=== PATIENT | male | born 1960 | race Asian ===

== ENCOUNTER 2018-10-31 02:55 | Emergency (ER) | payer MEDICAID ==
[~2018-10-31] VITALS: Ht 175.3 cm; Wt 74.5 kg
[2018-10-31 03:04] VITALS: BP 179/93
[2018-10-31] MEDS ORDERED: ketorolac trometh. 30mg/ml inj. IM ONE (03:20)
[2018-10-31] MEDS ORDERED: IBUP-1985 PO (03:21)
== END 2018-10-31 06:18 | disposition home or self-care (01) ==
LOC: ER 02:56
DX: M25.561 Pain in right knee (principal); M25.461 Effusion, right knee; Z79.899 Other long term (current) drug therapy; W18.49XA Other slipping, tripping and stumbling without falling, initial encounter; Y93.89 Activity, other specified; Y92.89 Other specified places as the place of occurrence of the external cause; Y99.8 Other external cause status
CPT/HCPCS: 73564; 73700; 96372; 99284; J1885

== ENCOUNTER 2020-02-11 16:47 | Emergency (ER) | payer MEDICAID ==
[~2020-02-11] VITALS: Ht 175.3 cm; Wt 83.6 kg
[~2020-02-11 16:47] MED LIST: IBUP-1985 PO
[2020-02-11 17:07] VITALS: BP 156/83
== END 2020-02-11 18:18 | disposition home or self-care (01) ==
LOC: ER 16:47
DX: M25.562 Pain in left knee (principal); M25.462 Effusion, left knee; Z60.2 Problems related to living alone; Z79.899 Other long term (current) drug therapy
CPT/HCPCS: 29505; 73564; 99283